=== PATIENT | female | born 1995 | race Caucasian/White ===

== ENCOUNTER 2023-07-10 12:07 | Outpatient (CLI) | payer MEDICAID, SELFPAY ==
--- NOTE | 2023-07-10 12:15 | US_ITS ---
Patient: MICHI BERGER Facility:?[facility] Patient ID:?[id number] Site Patient ID:?[id number]. Site :?1995 Study:?US-OB Pelvis OB ANATOMY-07/10/2023 1:27:31 PM Ordering Physician:ANDREWS TRAVIS Final Report: INDICATION: survey. TECHNIQUE: Conventional transabdominal and transvaginal two-dimensional grayscale ultrasound examination. COMPARISON: None. FINDINGS: There is a living fetus with gestational age of 26 weeks 1 day by LMP and 26 weeks by today`s measurements. EDC based on LMP is 10/15/2023. BPD: 6.5 cm, 26 weeks 2 days Head circumference: 24.1 cm, 26 weeks 2 days Abdominal circumference: 21.2 cm, 25 weeks 5 days Femur length: 4.7 cm, 25 weeks 4 days The weight is estimated at 843 grams, the 23rd percentile. The heart rate is measured at 152 beats per minute and the rhythm appears regular. The head and spine are grossly intact. No gross facial abnormality is evident. The upper lip is intact. Four cardiac chambers are demonstrated. The heart and stomach appear to be on the same side. The diaphragm is intact. Two kidneys and a bladder are demonstrated. The cord insertion is normal and three cord vessels are noted. Four extremities are demonstrated. The amniotic fluid volume is within normal limits. The placenta is posterior. The placenta is low-lying with the inferior margin 0.8 cm from the internal os. The cervical length is normal at 4.0 cm. IMPRESSION: 1. Living fetus with gestational age of 26 weeks 1 day by LMP and 26 weeks by today`s measurements. EDC based on LMP is 10/15/2023. 2. No anomaly evident. 3. Low-lying posterior placenta with inferior margin of the placenta 0.8 cm from the internal os. Dictated by Charles Maher MD @ 07/11/2023 12:04:37 PM Signed by:?Charles Maher MD @07/11/2023 12:04:37 PM (Electronic Signature)
== END 2023-07-10 12:08 | disposition home or self-care (01) ==
LOC: US 12:09
PROVIDERS: Visit Provider Physician Assistant
DX: Z34.92 Encounter for supervision of normal pregnancy, unspecified, second trimester (principal); O44.42 Low lying placenta NOS or without hemorrhage, second trimester; Z3A.26 26 weeks gestation of pregnancy
CPT/HCPCS: 76805; 76817; T1013

== ENCOUNTER 2023-07-10 14:37 | Outpatient (CLI) | payer MEDICAID, SELFPAY ==
[2023-07-10 17:44] LABS: Chlamydia DNA Amplified* NOT DETECTED (No Detected); GC DNA Amplified* NOT DETECTED (No Detected)
== END 2023-07-10 14:38 | disposition home or self-care (01) ==
PROVIDERS: PCP Physician Assistant; Visit Provider Physician Assistant
DX: O09.32 Supervision of pregnancy with insufficient antenatal care, second trimester (principal); O44.42 Low lying placenta NOS or without hemorrhage, second trimester; Z3A.26 26 weeks gestation of pregnancy
CPT/HCPCS: 76805; 76817; 84443; 86592; 86703; 86704; 86706; 86762; 86787; 86803; 86850; 86900; 86901; 87086; 87340; 87491; 87591; T1013

== ENCOUNTER 2023-07-23 08:02 | Outpatient (CLI) | payer MEDICAID, SELFPAY | END 2023-07-23 08:03 | disposition home or self-care (01) | LOC: NFLDREF 07-25 09:37 | PROVIDERS: Visit Provider Registered Nurse | DX: Z34.93 Encounter for supervision of normal pregnancy, unspecified, third trimester (principal); Z3A.28 28 weeks gestation of pregnancy | CPT/HCPCS: 86592 ==

== ENCOUNTER 2023-07-29 08:06 | Outpatient (CLI) | payer MEDICAID, SELFPAY | END 2023-07-29 08:07 | disposition home or self-care (01) | LOC: NFLDREF 08-02 11:02 | PROVIDERS: Visit Provider Registered Nurse | DX: R73.09 Other abnormal glucose (principal) | CPT/HCPCS: 82951; 82952; T1013 ==

== ENCOUNTER 2023-08-07 12:58 | Outpatient (CLI) | payer MEDICAID, SELFPAY ==
--- NOTE | 2023-08-07 13:00 | US_ITS ---
Patient: MICHI BERGER Facility:?[facility] Patient ID:?[id number] Site Patient ID:?[id number]. Site :?1995 Study:?US-OB Pelvis OB F/U-08/07/2023 7:50:16 AM Ordering Physician:ANDREWS TRAVIS PA-C Final Report: INDICATION: Follow up growth and low lying placenta TECHNIQUE: Real time allen scale imaging of the fetus was performed. Doppler evaluation of the umbilical artery also performed. COMPARISON: 07.10.23 FINDINGS: Sonographic imaging demonstrates a single living intrauterine gestation. Fetus demonstrates a regular cardiac rate of 147 beats per minute. Fetus has a vertex position. The placenta lies left posterior without evidence of placenta previa. Edge of the posterior placenta located 8 cm from the internal cervical os on transvaginal imaging. Amniotic fluid volume appears normal and there is a single deepest pocket of 5.5 cm. The estimated weight is 1651gm which lies at the 63rd %. On the prior OB ultrasound dated 07/10/2023 the estimated weight was at the 23rd percentile. BPD 67th percentile. HC is 57th percentile. AC is 76th percentile. FL is 31st percentile. Adequate diastolic flow within the umbilical artery with SD ratio 2.4 The fetus was active and demonstrated normal breathing movements. There was normal flexion and extension of the trunk and extremities. IMPRESSION: Normal biophysical profile score 8/8. Sonographic gestational age 31 weeks 0 days and sonographic age 0710/09/2023. Good correlation with dates. Estimated weight is 63rd percentile. Abdominal circumference 76th percentile. Edge of the posterior placenta located 8 cm from the internal cervical os on transvaginal imaging. No further follow-up indicated. Dictated by Tex Claire MD @ 08/08/2023 11:36:27 AM Signed by:?Tex Claire MD @08/08/2023 11:36:27 AM (Electronic Signature)
== END 2023-08-07 12:59 | disposition home or self-care (01) ==
LOC: US 13:01
PROVIDERS: Visit Provider Physician Assistant
DX: O44.43 Low lying placenta NOS or without hemorrhage, third trimester (principal); Z3A.30 30 weeks gestation of pregnancy
CPT/HCPCS: 76816; 76817; 76819; 76820

== ENCOUNTER 2023-09-19 15:26 | Outpatient (CLI) | payer MEDICAID, SELFPAY ==
[2023-09-20 15:28] LABS: Strep B DNA Probe Negative (Negative)
[2023-09-20 15:54] LABS: Strep B Susceptibility Needed? No
== END 2023-09-19 15:27 | disposition home or self-care (01) ==
LOC: NFLDREF 15:26
PROVIDERS: Visit Provider Obstetrics & Gynecology
DX: Z34.83 Encounter for supervision of other normal pregnancy, third trimester (principal)
CPT/HCPCS: 87081; 87653

== ENCOUNTER 2023-09-26 08:15 | Outpatient (CLI) | payer MEDICAID, SELFPAY ==
--- NOTE | 2023-09-26 08:45 | CRLHL7_ITS ---
For Patients: As a result of the Century Cures Act, medical imaging exams and procedure reports are released immediately into your electronic medical record. You may view this report before your referring provider. If you have questions, please contact your health care provider. INDICATION: Third trimester scan, evaluate growth. Small for dates. COMPARISON: 08/07/2023 TECHNIQUE: Real time allen scale imaging of the fetus was performed. FINDINGS: Sonographic imaging demonstrates a single living intrauterine gestation. Fetus demonstrates a regular cardiac rate of 145 beats per minute. Fetus has a vertex position. The placenta lies left posterior. Amniotic fluid volume appears normal and there is a single deepest vertical pocket: 6.3 cm. The estimated weight is 3424gm which lies at the 80th %. On the prior OB ultrasound exam dated 08/07/2023 the estimated weight was at the 63rd%. BPD 13th percentile. HC 46th percentile. AC greater than 97th percentile. FL 15th percentile. The HC/AC ratio measures 0.93 range (0.91-1.05). IMPRESSION: Sonographic gestational age 37 weeks 2 days and sonographic due date of 10/15/2023. Good correlation with dates. Normal interval growth. Estimated weight 80th percentile. Abdominal circumference greater than 97th percentile. Dictated by Tex Claire MD @ 09/27/2023 7:34:12 PM (Electronically Signed)
== END 2023-09-26 08:16 | disposition home or self-care (01) ==
LOC: US 08:21
PROVIDERS: Visit Provider Obstetrics & Gynecology
DX: O36.5930 Maternal care for other known or suspected poor fetal growth, third trimester, not applicable or unspecified (principal); Z3A.37 37 weeks gestation of pregnancy
CPT/HCPCS: 76816; T1013

== ENCOUNTER 2023-10-08 16:08 | Inpatient (IN) | payer MEDICAID, SELFPAY ==
[2023-10-08] VITALS (8 sets, daily range): BP systolic 108–109; BP diastolic 59–67; PULSE 79–218; RESP 16; TEMP 36.8–36.9; O2SAT 80–98; BMI 26.6
--- NOTE | 2023-10-08 16:15 | P.OBHP_ITS ---
OB - H&P: HPI Labor/Induction History of Present Illness Time Seen by Provider: 16:17 Date Seen: 10/08/23 Chief complaint: IOL - continued Narrative: The patient is a 28 year old 2 para 1 at 39 weeks gestation by ultrasound admitted for elective induction of labor. is complicated by resolved low-lying placenta, anemia, history of hypothyroidism. She transferred her care at 26 weeks, previous care was in [place]. Her complete history and physical is dictated by Dr. Schulz on 09/26/2023, please see this note for complete details. Christiana is feeling well today with no acute concerns. Denies any regular/painful uterine contractions, vaginal bleeding or leaking of fluid. Endorses active movement. She denies chest pain, shortness of breath, dizziness/lightheadedness, nausea/vomiting, fever/chills, bowel or bladder concerns. Specific Issues/Plans : Jimy, son Jorge Alberto, Baby: girl! #1st OB at 26 weeks and 1 day. Previous care in [place]. Three visits in [place]. Records not available. #Measuring smaller than dates, minimal weight gain in -Growth US ordered to be completed at 37 weeks # Desires sterilization * [facility] tubal consent form given for her review 08/06 * Consent signed 09/05/23. Looking into vasectomy as well. # Diagnosed with hypothyroidism in [place], was told to treat for 2 months. TSH 07/10/2023: 1.41 # Posterior low-lying placenta-RESOLVED Pelvic rest Follow-up ultrasound at 30 weeks: reportedly resolved, 8 cm from os # Anemia. Hemoglobin 10.5 at 26 weeks Will initiate iron 10.0 at 28 weeks 11.1 at 34 weeks # Diagnosed with a UTI in [place], did not take treatment. Asymptomatic UC: neg #Rubella non-immune vaccinate PP #Failed 1 hour gct. 3 hour gtt: Passed Pap H&P: By Dr. Schulz on 09/26/23 Meds Home Medications and Allergies Home Medications ?Medication ?Instructions ?Recorded ?Confirmed ?Type docosahexaenoic acid 200 mg mg PO 07/10/23 10/03/23 History capsule ( DHA) Allergies Allergy/AdvReac Type Severity Reaction Status Date / Time No Known Drug Allergies Allergy Verified 09/26/23 09:34 OB - H&P: Exam Physical Exam: Narrative: General: Alert and oriented, in no acute distress Psych: Appropriate mood and affect Abdomen: Gravid. EFW is 3500g by Harriet. Abdomen is nontender throughout. heart rate: Category 1. Baseline is 140, moderate variability, accelerations present decelerations absent. Killdeer: Vicente q2-4 minutes, denies feeling these Cervix: 04/15/-4 OB - Problem Based A/P Additional Plan (1) : Status: Acute (2) Hypothyroidism: Status: Acute (3) Marginal insertion of umbilical cord: Status: Acute Plan Christiana is a 28 year old 2 para 1 at 39 weeks gestation by ultrasound admitted for elective induction of labor. is complicated by resolved low-lying placenta, anemia, history of hypothyroidism. - Admit to Labor and delivery for elective induction of labor. Cervix is 04/15- 4, we discussed the risks and benefits with cervical ripening with Cytotec or cook catheter. After discussion, patient desires placement of a Cook catheter. This was placed without difficulty, well tolerated. Plan to start low-dose Pitocin overnight. - Obtain CBC and type and screen on admission for anemia - EFW by US on 09/25 was 3424g at 80%ile with AC >97%ile. She has been previously counseled on risk of shoulder dystocia. My EFW on William's today is 3500g. - Blood type A positive - GBS negative
[2023-10-08 17:52] LABS: Basophils Absolute Auto 0.02 K/uL (0.00-0.30); Basophils Percent Auto 0.2 % (0.0-3.0); Eosinophils Absolute Auto 0.06 K/uL (0.00-0.50); Eosinophils Percent Auto 0.7 % (0.0-7.0); Hematocrit 35.9 % (33.0-51.0); Hemoglobin* 11.7 gm/dL (12.0-16.0); Immature Granulocytes Abs Auto 0.01 K/uL (0.00-0.30); Immature Granulocytes Pct Auto 0.1 %; Lymphocytes Absolute Auto 1.76 K/uL (0.90-2.90); Lymphocytes Percent Auto 21.6 % (20-44); Mean Corpuscular HGB Conc 33 gm/dL (32-36); Mean Corpuscular Hemoglobin 27 pg (26-34); Mean Corpuscular Volume 83 fL (80-100); Monocytes Percent Auto 5.2 % (0.0-11.0); Neutrophils Percent Auto 72.2 % (42.0-72.0); Platelet Count* 223 K/uL (140-440); RDW Coefficient of Variation % 15.8 % (11.5-15.5); Red Blood Count 4.34 m/uL (4.00-5.20); White Blood Count* 8.15 K/uL (4.50-11.00)
[2023-10-08 17:55] LABS: Slide Review Reflex No
[2023-10-09] VITALS (34 sets, daily range): BP systolic 102–136; BP diastolic 51–88; PULSE 59–155; RESP 16–18; TEMP 36.5–37.6; O2SAT 98–100
[2023-10-09] MEDS: LACTATED RINGERS 1000 ML 1,000 ML 125 ML IV ×2 (00:14→11:06)
[2023-10-09] MEDS: OXYTOCIN 30 unit/500 ML in NS 30 UNIT/500 ML BAG IVPB (00:26)
[2023-10-09] MEDS: MORPHINE 10 MG/ML inj IM (02:20)
[2023-10-09] MEDS: hydrOXYzine pamoate 25 MG CAPSULE 100 MG PO (02:20)
--- NOTE | 2023-10-09 08:16 | P.OBPN_ITS ---
Subjective Time Seen by Provider: 07:50 Date Seen: 10/09/23 Narrative: Okay Objective Vital Signs: Last Vital Signs Temp 97.7 F 10/09/23 02:15 Pulse 64 10/09/23 05:18 Resp 18 10/09/23 03:53 BP 102/51 L 10/09/23 05:18 Pulse Ox 97 10/08/23 16:38 Contractions Monitor mode: External Contraction pattern: Regular Contraction intensity: Mild Assessment Assessment: induction ongoing Heart Rate Baseline: 130 Longterm Variability: Moderate (6-25) Monitor Accelerations: Present Monitor Decelerations: None Plan Plan: Elective IOL. S/P cook catheter. IV Oxytocin had to be d/c due to staffing issues. Plan to restart IV Oxytocin and AROM when able. Patient is updated about staffing situation and understands. NST reactive. Will d/c monitoring at the moment, patient encouraged to continue ambulation, continue to stimulate uterine contractions. GBS negative. No need for antibiotics. Candidate for pain management as patient preference. Team to be remain aware of AC > 97% risk of shoulder dystocia.
[2023-10-09] MEDS: ROPIVACAINE 0.2 % PF 10 ML INJ 20 MG EPIDURAL (15:53)
[2023-10-09] MEDS: LIDOCAINE 2% (PF) 5 ML VIAL EPIDURAL (15:58)
[2023-10-09] MEDS: ROPIVACAINE 0.2% 100 ml 100 ML 12 MG EPIDURAL (16:11)
--- NOTE | 2023-10-09 16:22 | P.OBPN_ITS ---
Subjective Time Seen by Provider: 03:30 Date Seen: 10/09/23 Narrative: Okay Objective Vital Signs: Last Vital Signs Temp 97.9 F 10/09/23 10:41 Pulse 70 10/09/23 16:17 Resp 18 10/09/23 03:53 BP 125/58 L 10/09/23 16:17 Pulse Ox 100 10/09/23 16:11 Pelvic Exam Dilation (cm): 7-8 Effacement (%): 75 Station: -1 Contractions Monitor mode: External Contraction pattern: Regular Contraction intensity: Mild Pitocin Rate (mU/min): 11 Assessment Assessment: induction ongoing Station: -1 Amniotic Membrane Status: AROM Status: Category l Heart Rate Baseline: 130 Residential Service Technician Variability: Moderate (6-25) Monitor Accelerations: Present Monitor Decelerations: None Plan Plan: AROM, clear fluid. Normal progression. Patient desires epidural and anesthesia has been notified. Expect a vaginal delivery.
--- NOTE | 2023-10-09 16:25 | PM.ANBPRC ---
[facility] Social History Narrative: SOCIAL HISTORY: Occupation: [employer]. Marital status: . Gnosticism/cultural needs: no. Chemical or radiation exposure: no. Pre- tobacco use: no. Pre- alcohol use: no. Current tobacco use: no. Current alcohol use: no. Recreational drug use: no. Dietary restrictions: no. Blood transfusion acceptable in an emergency: yes. PSYCHOSOCIAL HISTORY: History of depression or currently depressed: No. Current or past physical, emotional, or sexual mistreatment: Denies. Problems that will make it hard to make it to appointments: No. What is your current living situation?: I presently have a place to live Problems where you live: no known problems In the past 12 months, utilities in danger of being shut off: no In past 12 months, lack of transportation kept you from medical appts, meetings, work, or getting things needed for daily living: no In the past 12 mos, have been you worried that your food would run out before you had money to buy more?: never true In the past 12 mos, the food you bought just didn't last and you didn't have money to buy more?: never true Smoking Status: Never smoker How often does anyone, including family, friends and others, physically hurt you: never How often does anyone, including family, friends and others, insult or talk down to you: never How often does anyone, including family, friends and others, threaten you with harm: never How often does anyone, including family, friends and others, scream or curse at you: never Little interest or pleasure in doing things: not at all Feeling down, depressed, or hopeless: not at all Meds Home Medications and Allergies Home Medications ?Medication ?Instructions ?Recorded ?Confirmed ?Type docosahexaenoic acid 200 mg mg PO 07/10/23 10/03/23 History capsule ( DHA) Allergies Allergy/AdvReac Type Severity Reaction Status Date / Time No Known Drug Allergies Allergy Verified 09/26/23 09:34 Results Labs Labs: Laboratory Results - last 24 hr 10/08/23 17:46 WBC 8.15 RBC 4.34 Hgb 11.7 L Hct 35.9 MCV 83 MCH 27 MCHC 33 RDW Coeff of Ember 15.8 H Plt Count 223 Neut % (Auto) 72.2 H Lymph % (Auto) 21.6 Rusk % (Auto) 5.2 Eos % (Auto) 0.7 Baso % (Auto) 0.2 Neut # (Auto) 5.90 Lymph # (Auto) 1.76 Rusk # (Auto) 0.40 Eos # (Auto) 0.06 Baso # (Auto) 0.02 Abs Immat Gran (auto) 0.01 Imm/Tot Granulo (auto) 0.1 Blood Type A Positive Antibody Screen NEGATIVE Vital Signs Vital Signs: Last Vital Signs Temp 97.9 F 10/09/23 10:41 Pulse 70 10/09/23 16:17 Resp 18 10/09/23 03:53 BP 125/58 L 10/09/23 16:17 Pulse Ox 100 10/09/23 16:11 Weight: 68.13 kg Height: 160.02 cm Anesthesia Procedures Epidural Insertion Patient Location: OB Start Time: 15:30 Stop Time: 16:15 Start Date: 10/09/23 Stop Date: 10/09/23 Reason for Block: procedure for pain Patient Position: sitting Performed By: Vaibhav Hollis Preanesthetic Checklist: IV checked, risks and benefits discussed, surgical consent, monitors and equipment checked, pre-op evaluation, timeout performed and anesthesia consent Prep: chlorhexidine gluconate Monitoring: blood pressure monitoring, continuous pulse oximetry and heart rate Approach: midline Vertebral Space: lumbar (1-5) Epidural Technique: MALLORIE air Needle Type: Tuohy needle Injection Technique: continuous catheter Needle gauge: 17 Needle Length (cm): 10 cm Needle Insertion Depth (cm): 7 Catheter Gauge: 19 Catheter Type: multi-orifice Catheter at skin depth (cm): 13 Test Dose Result: negative and lidocaine 1.5% with epinephrine 1 to 200,000
[2023-10-09] MEDS: miSOPROStoL 800 MCG/4 TABLET PR (17:30)
--- NOTE | 2023-10-09 17:38 | W.PM.OBVAGDE ---
OB Procedure Vag Delivery Mother Details Mother Details: Chrisitana is a 28 year-old, 2, Para 1, admitted on 10/08/23 at 390 Days gestation. : 2 Para: 2 Weeks Gestation: 39.1 Admission Date: 10/08/23 Additional Details Amniotic Membrane Status: AROM Amniotic Membrane Rupture Date: 10/09/23 Amniotic Membrane Rupture Time: 15:29 Amniotic Membrane Fluid Description: Clear Analgesia/Anesthesia Type: Epidural Waterbirth: No Pitcoin: Yes Intrapartal Events: Labor Induction Induction Method: Intracervical balloon catheter, per pitocin protocol and AROM Labor Onset: 15:29 Complete: 16:46 Pushin:50 Heart: heart tones during second stage were category 2. Baseline 130, moderate variability, + accels. No decels until crowing and then a variable decel to the 90's for the last minute before delivery. Delivery Details Delivery Date: 10/09/23 Delivery Time: 17:07 Route of delivery: Infant Gender: Female Viability: Alive; Heart Rate Present Position at Delivery: OA Delivery Details: Patient was admitted for elective IOL with cook catheter, Pitocin titration, and AROM. She progressed normally. AROM noted at 1529 with clear fluid. Patient was complete at 1646 and pushing at 1650. of a viable female at 1707 on her back in the bed. She delivered with the CNM due to the OB being in a delivery. She was feeling pressure even with her epidural. Vertex delivered OA. No shoulder. Nuchal x2 unable to reduce at time of delivery and somersaulted at delivery. Reduced after delivery. Body delivered easily and without incident. Infant passed to mothers abdomen with a vigorous cry. Cord was clamped and cut at about 3 minutes due to increased bleeding. APGARS were 8 at one minute and 9 at five minutes respectively. Mouth was bulb suctioned. Intact placenta with a 3 vessel cord delivered spontaneously at 1730. Fundus firm. 1st identified. It was hemstatic and no repaired was indicated. QBL 625 cc. Rectal Cytotec encouraged and agreed to due to increased QBL. Fundus firm and bleeding stable at the time of administration. Mother and baby stable; mother plans to breastfeed. Infant weight pending.? 1 Minute Interval Total Score: 8 5 Minute Interval Total Score: 9 Additional Details Shoulder Dystocia: No Placenta Delivery Time: 17:30 Placental Delivery Description: Spontaneous Procedure Done: Global Blood Loss: 625 Laceration: Perineal - 1st Degree (not repaired ) Episiotomy Description: None Blood Loss Measurement Type: QBL Bakri Used: No Sponge/Need Count Correct: Yes Cord Vessel Description: 3 Vessels, Nuchal Cord (x2) and Tight Event Summary Status: Mother and were stable after delivery. Disposition: floor
[2023-10-10] VITALS (17 sets, daily range): BP systolic 93–117; BP diastolic 59–75; PULSE 60–79; RESP 14–16; TEMP 36.1–36.7; O2SAT 93–99
[2023-10-10] MEDS: 5 % DEXTROSE/0.45% SOD CHLOR 1,000 ML 125 ML IV (01:14)
[2023-10-10 06:20] LABS: Hemoglobin* 10.4 gm/dL (12.0-16.0)
[2023-10-10] MEDS: DOCUSATE SODIUM 100 MG CAPSULE PO (09:07)
--- NOTE | 2023-10-10 09:55 | W.PM.H&PU ---
History & Physical Update History & Physical Update H&P Reviewed and patient assessed: No changes noted
--- NOTE | 2023-10-10 09:55 | PM.PROC ---
Procedure Note Time Seen by Provider: 11:39 Date Seen: 10/10/23 Date of procedure: 10/10/23 Will [facility] bill your pro fee for this procedure?: Yes Procedure: Preoperative diagnosis: 28-year-old 2 now para [] who desires permanent sterilization, day 1. Postoperative diagnosis: Same. Procedure: Mini laparotomy with bilateral salpingectomy Anesthesia: General endotracheal Surgeon: Dinora Patterson MD Contact Center Professional: ZEENAT Mathis EBL: 10 mL Urine output: 550 mL clear urine IVF: 550 ml Specimen: Bilateral fallopian tubes to pathology. Tubes were sent together. Findings: The fundus was noted to be 2 cm below the umbilicus. The uterus, bilateral fallopian tubes and ovaries all appeared normal. Procedure: Patient was taken to the operating room where spinal anesthetic was found to be adequate. Her bladder was drained with straight catheterization. She was placed in the dorsal supine position and an exam under anesthesia was performed with findings stated above. She was then prepped and draped in a normal sterile manner. 5 mL of 0.5% Marcaine without epinephrine were injected underneath the skin prior to incision. A 3 cm partially circular incision was made inferior to the umbilicus. This was carried through to the underlying layer of fascia using bipolar cautery. The fascia was identified, grasped with 2 Nakia clamps and divided with a Garcia scissors. This incision was extended laterally with Garcia scissors. The peritoneum was identified and entered bluntly. A small Jose Antonio, self-retaining retractor was placed. portion of the procedure. The patient was placed in a slight Trendelenburg position. The right ovary was grasped and brought to the incision. The fallopian tube was identified and grasped with 2 Victor clamps. The fallopian tube was removed by performing serial pedicles with the hand-held LigaSure dissecting forceps. The fallopian tube was removed from the uterus at the cornual aspect. Excellent hemostasis was noted. The left fallopian tube was identified, grasped, and removed in a similar manner. Again excellent hemostasis noted. The fascia was reapproximated using 0 Vicryl in a running manner. The subcutaneous tissue was irrigated with a small amount of saline and bipolar cautery used to obtain hemostasis. Six 3 interrupted sutures of 3-0 Vicryl were placed in the subcutaneous tissue to prevent space. The skin was reapproximated using 4-0 Monocryl and a running subcuticular manner. Exofin was then applied. The patient tolerated this procedure well. Sponge, lap and instrument counts were correct x2 at the end of the procedure and the patient was taken to the recovery area in stable condition. Anesthesia: GETA
--- NOTE | 2023-10-10 10:40 | W.ANESCHARGE ---
Anesthesia Charges Start Date/Time Anesthesia Start Date: 10/10/23 Anesthesia Start Time: 11:01 Stop Date/Time Anesthesia Stop Date: 10/10/23 Anesthesia Stop Time: 12:02
[2023-10-10] MEDS: LACTATED RINGERS 1000 ML 1,000 ML 100 ML IV (11:25)
[2023-10-10] MEDS: BUPIVACAINE 0.5% 30 ML INJECTION (11:32)
--- NOTE | 2023-10-10 12:02 | W.ANESCHARGE ---
Anesthesia Charges Start Date/Time Anesthesia Start Date: 10/10/23 Anesthesia Start Time: 11:01 Stop Date/Time Anesthesia Stop Date: 10/10/23 Anesthesia Stop Time: 12:02
[2023-10-10] MEDS: fentaNYL 100 MCG/2 ML inj 50 MCG IVP (12:13)
[2023-10-10] MEDS: KETOROLAC 30 MG/ML inj IVP (18:26)
[2023-10-10] MEDS: ACETAMINOPHEN 500 MG TABLET 1000 MG PO (20:30)
[2023-10-10 20:55] LABS: Rapid Plasma Reagin (RPR) Non Reactive (Non Reactive)
[2023-10-11] MEDS: KETOROLAC 30 MG/ML inj IVP (00:43)
[2023-10-11 03:20] VITALS: BP 106/65; PULSE 64; RESP 16; TEMP 36.7; O2SAT 98
[2023-10-11] MEDS: ACETAMINOPHEN 500 MG TABLET 1000 MG PO (07:45)
[2023-10-11] MEDS: DOCUSATE SODIUM 100 MG CAPSULE PO (07:45)
[2023-10-11 07:54] VITALS: BP 119/76; PULSE 51; RESP 16; TEMP 36.4; O2SAT 99
--- NOTE | 2023-10-11 09:40 | PM.OBDSVD1 ---
DS: Providers Provider Time Seen by Provider: 08:00 Date Seen: 10/11/23 Date of admission: 10/08/23 16:08 Primary care physician: Not a Local Provider Admitting Clinician: Wendy Smyth MD Attending Physician on discharge: Wendy Smyth MD Date of Discharge: 10/11/23 DS: Diagnosis Discharge Diagnosis (1) Hypothyroidism: Status: Acute Exam Narrative: Exam Narrative: Physical exam: General: No acute distress Psych: Alert and oriented x4, full affect HEENT: Normocephalic, atraumatic Neck: No cervical adenopathy, no thyromegaly Heart: Regular rate and rhythm, no murmur rub or gallop Lungs: Clear to auscultation bilaterally Abdomen: Normoactive bowel sounds, soft, no tenderness, rebound, or guarding, no masses, no hepatosplenomegaly, no hernias Incision: Appropriately tender to palpation. Clean, dry, and intact. No erythema, induration, or abnormal discharge/breakdown Skin: No lesions or rashes Breasts: no nodules or masses, no nipple discharge, no axillary adenopathy Lower extremities: No edema or erythema Pelvic exam: scant vaginal bleeding Const: Vital Signs, click to edit/add: Vital Signs - 24 hr 10/10/23 12:00 10/10/23 12:05 10/10/23 12:10 Temperature 97 F L 97 F L 97 F L Pulse Rate 70 67 63 Pulse Rate [Pulse Oximeter] Respiratory Rate 14 14 14 Blood Pressure 101/63 105/71 113/70 Blood Pressure [Le ft Arm] Pulse Oximetry 93 96 96 Oxygen Delivery Me thod Room Air Room Air Room Air 10/10/23 12:15 10/10/23 12:20 10/10/23 12:25 Temperature 97.8 F Pulse Rate 63 79 70 Pulse Rate [Pulse Oximeter] Respiratory Rate 14 14 14 Blood Pressure 108/69 113/73 117/72 Blood Pressure [Le ft Arm] Pulse Oximetry 96 97 99 Oxygen Delivery Me thod Room Air Room Air Room Air 10/10/23 12:45 10/10/23 13:00 10/10/23 13:14 Temperature 97.4 F L Pulse Rate Pulse Rate [Pulse Oximeter] 63 62 69 Respiratory Rate 16 16 Blood Pressure Blood Pressure [Le ft Arm] 116/72 110/68 104/61 Pulse Oximetry 99 99 Oxygen Delivery Me thod 10/10/23 13:22 10/10/23 14:00 10/10/23 14:30 Temperature 98.0 F Pulse Rate Pulse Rate [Pulse Oximeter] 61 60 76 Respiratory Rate 16 16 16 Blood Pressure Blood Pressure [Le ft Arm] 116/70 107/68 111/73 Pulse Oximetry 99 99 99 Oxygen Delivery Me thod 10/10/23 18:30 10/10/23 20:12 10/11/23 03:20 Temperature 97.9 F 97.5 F L 98.0 F Pulse Rate Pulse Rate [Pulse Oximeter] 79 75 64 Respiratory Rate 16 16 16 Blood Pressure Blood Pressure [Le ft Arm] 94/66 106/67 106/65 Pulse Oximetry 97 98 98 Oxygen Delivery Me thod Room Air Room Air Room Air 10/11/23 07:54 Temperature 97.6 F Pulse Rate Pulse Rate [Pulse Oximeter] 51 L Respiratory Rate 16 Blood Pressure Blood Pressure [Le ft Arm] 119/76 Pulse Oximetry 99 Oxygen Delivery Me thod Room Air OB - DS: Summary Hospital Course Hospital Course: The patient is a 28 year old G 2 P 2001 at 39.1 weeks gestation that was admitted to the [facility] on 10/08/23 for elective IOL. She had an uncomplicated vaginal delivery. She delivered a viable female . She is . the patient has done well. She underwent an uncomplicated bilateral salpingectomy. Postoperatively she has done well with minimal pain. Overnight patient had no complaints. Her pain is well controlled on oral pain medications. She is tolerating a regular diet. She has passed flatus. She i ambulating without difficulty. Lochia is scant. She is urinating without mcgraw. Patient denies chest pain, SOB, n/v, headache, RUQ pain, vision changes, dizziness. Time spent discussing smoking cessation with patient: more than 10 minutes Peripartum Data Procedures: Procedures Operation Date: 10/10/23 10:00 Actual Procedure Side Surgeon p Bilateral Tubal Ligation Nita Patterson MD Procedures: tubal ligation/salpingectomy Gender: Female Time Spent with Patient Time attestation: Total time spent providing and/or coordinating discharge services: Time spent: Less than 30 minutes Discharge Plan Discharge Disposition: Home, Self-Care Date of Admission: 10/08/23 16:08 Attending Provider on Discharge: Romi Schulz Primary Care Provider: Provider,Not a Local Condition: Stable Anticipated Discharge Date/Time: 10/11/23 09:28 Discharge Medications: New Dermoplast (with menthol) 20-0.5 % Aerosol 1 spray topical QID PRNQty: 78 0RF acetaminophen 500 mg Tablet 1,000 mg PO Q6H PRN30 Days Qty: 60 0RF calcium carbonate 200 mg calcium (500 mg) Tablet,Chewable 1,000 - 2,000 mg PO Q2H PRN30 Days Qty: 30 0RF docusate sodium 100 mg Capsule 100 mg PO DAILY 30 Days Qty: 30 0RF ibuprofen 600 mg Tablet 600 mg PO Q6H PRN30 Days Qty: 60 0RF Lanolin (HPA) 100 % Cream 1 applic topical Q1H PRNQty: 21 0RF simethicone 80 mg Tablet,Chewable 80 - 160 mg PO Q4H PRN (Reason: gas) 30 Days Qty: 30 0RF oxycodone 5 mg Tablet 5 mg PO Q6H PRN7 Days Qty: 5 0RF Continued DHA 200 mg capsule 200 mg PO DAILY PRN ferrous sulfate 325 mg (65 mg iron) tablet,delayed release (DR/EC) 325 mg PO Q OTHER DAY Qty: 90 3RF Discharge Orders: Discharge Order (Routine); Ordered 10/11/23 Ordered By: Romi Schulz Patient Education: Vaginal Delivery (DC) Follow Up Appointments: Provider,Not a Local [Primary Care Provider] - Forms: [facility] Info Instructions Discharge Comments: Discharge instructions were reviewed with the patient including signs and symptoms of infection and home going medications. Lifting Restrictions: 20 pounds for [address] while taking narcotic pain medication: Approximately 1 week. Off Work or School for 6 weeks. Nothing vaginally for 6 weeks Symptoms to report to doctor: -Bleeding that saturates more than one pad per hour ?-Passing clots larger than the size of a golf ball ?-Pain not relieved by prescribed medication ?-Fever above 100.4 degrees Fahrenheit ?-A foul vaginal odor ?-Difficulty in emotions, mood and functions ?-Thoughts of hurting yourself and/or ?-Painful, reddened area in your breast ?-Any drainage, redness or tenderness in your IV/epidural site ?-Severe headache that doesn't improve after taking medications ?-Changes in vision, including temporary loss of vision, blurred vision, and/or light sensitivity ?-Upper abdominal pain (usually under ribs on the right side) ?-Decrease in urination or painful, frequent urinating ?-Chest pain ?-Shortness of breath ?-Tenderness or pain with redness and/swelling in the calf(s) of your leg Follow Up with a [facility] provider: ? 2 week visit: Answer concerns for care, screen for anxiety/depression. ? 6 week visit: Annual exam. consultation services are available to all mothers and babies for the first year after delivery.? To make an appointment, please call [phone].
== END 2023-10-11 11:15 | disposition home or self-care (01) | DRG 541 ==
PROVIDERS: Advanced Practice Midwife; Obstetrics & Gynecology; Admitting Provider Obstetrics & Gynecology; Visit Provider Obstetrics & Gynecology
PROC: 0UT70ZZ Resection of Bilateral Fallopian Tubes, Open Approach (ICD-10-PCS; CPT 58605; principal; 2023-10-10 09:45)
DX: O99.284 Endocrine, nutritional and metabolic diseases complicating childbirth (principal); E03.9 Hypothyroidism, unspecified; O69.89X0 Labor and delivery complicated by other cord complications, not applicable or unspecified; Z3A.39 39 weeks gestation of pregnancy; Z37.0 Single live birth; O70.0 First degree perineal laceration during delivery; Z30.2 Encounter for sterilization
CPT/HCPCS: 00851; 01967; 36415; 59200; 85018; 85025; 86592; 86850; 86900; 86901; 88302; T1013; A9270; C1726; J0330; J0665; J1100; J1630; J1885; J2270; J2371; J2405; J2704; J2795; J3010; J7120; S5010

== ENCOUNTER 2023-11-21 14:25 | Outpatient (CLI) | payer MEDICAID, SELFPAY | END 2023-11-21 14:26 | disposition home or self-care (01) | LOC: NFLDREF 12-04 13:30 | PROVIDERS: Visit Provider Obstetrics & Gynecology | DX: Z12.4 Encounter for screening for malignant neoplasm of cervix (principal) | CPT/HCPCS: 87624 ==

== ENCOUNTER 2025-01-03 16:16 | Outpatient (CLI) | payer MEDICAID, SELFPAY | END 2025-01-03 16:17 | disposition home or self-care (01) | PROVIDERS: PCP Family Medicine; Visit Provider Family Medicine | DX: E03.9 Hypothyroidism, unspecified (principal); R53.83 Other fatigue | CPT/HCPCS: 80048; 82728; 84443; 85025 ==